=== PATIENT | female | born 1965 | race Caucasian/White ===

== ENCOUNTER 2017-06-27 12:14 | Emergency (ER) | payer SELFPAY ==
[2017-06-27] MEDS: morphine 4 MG/ML VIAL IM (12:48)
[2017-06-27] MEDS: KETOROLAC 60 MG INJ IM (12:48)
[2017-06-27] MEDS: HYDROmorphONE 0.5 MG/0.5 ML SYG IM (13:30)
== END 2017-06-27 14:16 | disposition home or self-care (01) ==
LOC: FTE 12:14
DX: M54.31 Sciatica, right side (principal); E11.9 Type 2 diabetes mellitus without complications; F17.210 Nicotine dependence, cigarettes, uncomplicated
CPT/HCPCS: 72100; 96372; 99284-25